=== PATIENT | male | born 1960 | race Caucasian/White ===

== ENCOUNTER → 2025-05-21 08:55 | Outpatient (REF) | payer MEDICARE, SELFPAY | LOC: RAD 08:55 | PROVIDERS: ATTENDING PHYSICIAN Family Medicine | DX: R60.0 Localized edema (principal) | CPT/HCPCS: 93970 ==

== ENCOUNTER → 2025-06-08 08:18 | Outpatient (REF) | payer MEDICARE, SELFPAY | LOC: SDSPAT 08:18 | PROVIDERS: ATTENDING PHYSICIAN Specialist; FAMILY PHYSICIAN Family Medicine | DX: N20.0 Calculus of kidney (principal) | CPT/HCPCS: 36415; 93005 ==

== ENCOUNTER 2025-06-10 06:12 | Day surgery (SDC) | payer MEDICARE, SELFPAY ==
[2025-06-08 14:09] VITALS: BMI 33.1
[2025-06-10] VITALS (7 sets, daily range): BP systolic 147–176; BP diastolic 88–104; BMI 33.1
[2025-06-10] MEDS: NORMOSOL-R/PLASMALYTE-A 1000 IV (09:57)
[2025-06-10 12:12] LABS: Glucose - Point of Care 99 mg/dl (70-99)
== END 2025-06-10 13:35 | disposition home or self-care (01) ==
LOC: SDS 06:12
PROVIDERS: ATTENDING PHYSICIAN Specialist; FAMILY PHYSICIAN Family Medicine
DX: N20.0 Calculus of kidney (principal)
CPT/HCPCS: 52352; 74018; 76000; 82365; 82962; C1894; C2617

== ENCOUNTER 2025-10-15 08:34 | Emergency (ER) | payer MEDICARE, SELFPAY ==
[2025-10-15 08:39] VITALS: BP 184/112
[2025-10-15 08:44] VITALS: BP 198/110
[2025-10-15 09:09] VITALS: BP 189/94
--- NOTE | 2025-10-15 09:13 | ED.GENMED ---
History of Present Illness
General
Chief Complaint: Blood Pressure Problem
Source: patient
Exam Limitations: none
Time Seen by Provider: 10/15/25 09:07
Nursing documentation reviewed up to this point in time: agreed with
History of Present Illness
History of Present Illness:
64-year-old male with history of HTN, HLD, GERD, kidney stones, presenting with Left hip and lower back pain. The onset of pain was yesterday, without any known injury or overuse such as climbing or decorating. The pain is reported as being on the
left lower back, the lateral left hip and radiates to the groin area. The patient describes the pain as a throbbing, short pain, with a severity of 9 out of 10 when lying in a comfortable position, increasing to a 10 out of 10 upon sitting up
straight. The pain is reportedly aggravated by sitting up straight and moving, but not by mild physical activity such as lifting the leg. The patient also reported a history of a similar incident last year, which was diagnosed as significant muscle
spasm and a large Left kidney stone.
The patient has taken losartan and valsartan, also had one Aleve at 8 AM. Blood pressure readings have been elevated, with a recent measurement of 189/94 mmHg. The patient denied fever,any headache, chest pain, difficulty breathing, abdominal pain,
nausea, vomiting, or diarrhea. Additional symptoms include some numbness and discomfort in the left side of the lower back. No loss of control of bowel or bladder. He recalled having a large kidney stone incidentally discovered in the past,
unrelated to the current symptoms but had to be removed by Dr. Brown ureteroscopically 3 weeks ago.
Past History
Past History
ED Past Medical History: Hypercholesterolemia and Other (History of kidney stone 15 years ago,)
ED Past Surgical History: Orthopedic (Right knee surgery for a fractured patella) and Urological ( L kidney stone removed 3 weeks ago)
Social History
Tobacco: Non-smoker
Alcohol: None
Personal:
Living: with family
Employment: Retired
Family History
Family History: Other (Family history of SC and kidney stones)
Review of Systems
Review of Systems
Allergies reviewed?: Yes
All Other Systems: ROS reviewed and negative except as documented in HPI and ROS
Phy Exam
Physical Exam
Physical Exam:
GENERAL: No acute distress. A&Ox3.
CONSTITUTIONAL: Afebrile.
EYES: clear, conjunctivae normal
ENMT: moist mucus membranes, Pharynx nl
RESPIRATORY: Regular respirations, nonlabored, lungs clear.
CARDIOVASCULAR: Regular rate and rhythm, no murmurs, no rubs.
GI: Soft, nontender, normal BS
MUSCULOSKELETAL: Laying leaning to right with pillow under left buttock for comfort. Unable to sit up due to pain. Tender to palpate left lower paralumbar soft tissues, left groin. Able to SLR bilaterally without pain. Well perfused.
SKIN: Warm, dry, pink
PSYCH: Normal mood and affect. Well kept, interactive and appropriate
NEUROLOGIC: Awake, alert and oriented. No focal neurological deficits
Course
Orders/Labs/Results
Orders:
Orders
10/15/25 09:33
Diazepam [Valium] 5 mg PO NOW STA
Ketorolac [Toradol] 30 mg IM NOW STA
Lumbar Spine Complete, 4 View [CR Lumbar Spine Comp Min 4 Vw*] Urgent
Comment:
Reason For Exam: left lower back pain rad to hip thigh and groin
10/15/25 09:34
Hip, Left 2-3 Views [CR Hip - LT w/wo Pel 2-3 Vw*] Urgent
Comment:
Reason For Exam: left lower back pain rad to hip thigh and groin
Include a pelvis x-ray?: Yes
10/15/25 12:29
Tramadol HCl [Ultram] 50 mg PO NOW STA
10/15/25 12:38
Dexamethasone [Decadron] 10 mg PO NOW STA
Vital Signs
Initial and Last Documented VS:
Initial Vital Signs
Temp Pulse Resp BP Pulse Ox
97.7 F 72 20 184/112 98
10/15/25 08:39 10/15/25 08:39 10/15/25 08:39 10/15/25 08:39 10/15/25 08:39
Last Documented Vital Signs
Temp Pulse Resp BP Pulse Ox
97.7 F 62 20 153/88 98
10/15/25 08:39 10/15/25 12:30 10/15/25 12:30 10/15/25 12:00 10/15/25 12:30
MDM/Problems Addressed
Differential Diagnosis Includes:
Musculoskeletal pain/muscle spasm, arthritis, lumbar radiculopathy, sciatica, herniated, fracture, sciatica, sacroiliitis,
MDM/Problems Addressed:
64-year-old male with history of HTN, HLD, GERD, kidney stones, presenting with Left hip and lower back pain. The onset of pain was yesterday, without any known injury or overuse such as climbing or decorating. The pain is reported as being on the
left lower back, the lateral left hip and radiates to the groin area. The patient describes the pain as a throbbing, short pain, with a severity of 9 out of 10 when lying in a comfortable position, increasing to a 10 out of 10 upon sitting up
straight. The pain is reportedly aggravated by sitting up straight and moving, but not by mild physical activity such as lifting the leg. The patient also reported a history of a similar incident last year, which was diagnosed as significant muscle
spasm and a large Left kidney stone.
The patient has taken losartan and valsartan, also had one Aleve at 8 AM. Blood pressure readings have been elevated, with a recent measurement of 189/94 mmHg. The patient denied fever,any headache, chest pain, difficulty breathing, abdominal pain,
nausea, vomiting, or diarrhea. Additional symptoms include some numbness and discomfort in the left side of the lower back. No loss of control of bowel or bladder. He recalled having a large kidney stone incidentally discovered in the past,
unrelated to the current symptoms but had to be removed by Dr. Brown ureteroscopically 3 weeks ago.
Patient had significant laboratory 2 days ago, results reviewed on his phone, no abnormalities in CBC, CMP other than Creat 1.4, PCP following
Patient much more comfortable after Toradol and Valium
x-ray LS spine radiology read:
X-ray left hip with pelvis radiology report read
12:15
Pt feeling much better after medications
OOB and ambulated independently to BR and back
Rx for Tramadol and prednisone taper sent to his pharmacy
He will f/u with ortho
*Pulse Oximetry
SaO2: 98
Oxygen Mode of Delivery: Room air
Patient hypoxic: no
*Critical Care Note
Total Time (30-74mins, 75-104mins- exclusive of procedures): Not Applicable
ED Attending Note
-
Portions of this chart may have been created with voice recognition software.� Occasional wrong word or��sound alike� substitutions may have occurred due to the inherent limitations of voice recognition software.
Discharge Plan
Departure
Patient Disposition: Home (Routine Discharge)
Date of Disposition: 10/15/25
Time of Disposition: 12:29
Patient with high blood pressure during this ER visit?: No
Condition: Good
Discharge Problem:
Acute left-sided low back pain, Degenerative joint disease of left hip
Instructions: Osteoarthritis, Low back pain - ED (DC)
Prescriptions:
New
prednisone 10 mg Tablet
See Rx Instructions .ROUTE .COMPLEX Qty: 30 0RF
Rx Instructions:
Take By Mouth:
40 mg daily x3 days, 30 mg daily x3 days,
20 mg daily x3 days, 10 mg daily x3 days.
tramadol 50 mg tablet
50 mg PO Q8H PRN (Reason: Pain) Qty: 10 0RF
No Action
valsartan 320 mg Tablet
320 mg PO DAILY
rosuvastatin 20 mg Tablet
20 mg PO HS
Doxycycline Antibiotic
100 mg PO BID
Referrals:
Carlos Manuel Conley MD [Active, Orthopedics] - Next open appointment
Warren Young MD [Family Provider, [facility]]
Activity Restrictions/Additional Instructions:
As we discussed, I sent a prescription to your pharmacy for Tramadol and Prednisone taper
Tylenol, Ibuprofen or Aleve as needed for mild to moderate pain
Use the Tramadol if needed for worse pain
Start the Prednisone tomorrow as you were given a dose of steroid here today
Make appointment to see the orthopedic doctor sometime within the next month.
Interventions
Interventions:
*General Assessment Last Done: 10/15/25 09:30
*Neglect/Abuse Screening Last Done: 10/15/25 09:30
*ED Influenza Vaccine History Last Done: 10/15/25 09:30
*Risk Screen - Suicide (C-SSRS) Last Done: 10/15/25 08:39
*Nursing Disposition Last Done: 10/15/25 12:48
ED- Cardiac Assessment Last Done: 10/15/25 09:30
ED- Neurological Assessment Last Done: 10/15/25 09:30
ED- Pulmonary Assessment Last Done: 10/15/25 09:30
Discharge Date and Time
Discharge Date/Time: 10/15/25 12:49
Print Language: DIVEHI
[2025-10-15] MEDS: TORADOL 30 MG IM (09:40)
[2025-10-15] MEDS: VALIUM 5 MG PO (09:40)
[2025-10-15 10:08] VITALS: BP 182/92
[2025-10-15 11:00] VITALS: BP 150/90
[2025-10-15 12:00] VITALS: BP 153/88
[2025-10-15] MEDS: DECADRON 10 MG PO (12:40)
[2025-10-15] MEDS: ULTRAM 50 MG PO (12:41)
== END 2025-10-15 12:49 | disposition home or self-care (01) ==
LOC: EMR 08:34
PROVIDERS: EMERGENCY PHYSICIAN Emergency Medicine; FAMILY PHYSICIAN Family Medicine
DX: M54.50 Low back pain, unspecified (principal); M16.12 Unilateral primary osteoarthritis, left hip; I10 Essential (primary) hypertension; E78.00 Pure hypercholesterolemia, unspecified; Z82.49 Family history of ischemic heart disease and other diseases of the circulatory system
CPT/HCPCS: 99284; 96372; 72110; 73502